=== PATIENT | female | born 1980 | race Caucasian/White ===

== ENCOUNTER 2020-09-22 14:27 | Emergency (ER) | payer OTHER ==
[2020-09-22 18:19] LABS: HEMOGLOBIN 11.3 gm/dl (12.3-15.3); RED BLOOD COUNT 4.56 M/UL (4.00-5.10); WHITE BLOOD COUNT 8.3 K/UL (4.5-11.0)
[2020-09-22 18:38] LABS: BUN/CREATININE RATIO 15 (0-10)
== END 2020-09-22 19:55 | disposition home or self-care (01) ==
LOC: ER1 14:27
PROVIDERS: Family Medicine
DX: O03.9 Complete or unspecified spontaneous abortion without complication (principal); Z91.040 Latex allergy status
CPT/HCPCS: 80053; 81001; 84702; 84703; 85025; 86900; 86901; 99284